=== PATIENT | female | born 1990 | race Caucasian/White ===

== ENCOUNTER 2024-09-25 01:42 | Emergency (ER) | payer SELFPAY ==
[~2024-09-25] VITALS: Ht 167.6 cm; Wt 60.0 kg
[2024-09-25 01:50] VITALS: BP 105/60; PULSE 88; RESP 18; TEMP 36.7; O2SAT 98
[2024-09-25] MEDS: OXYMETAZOLINE HCL NASAL SPRAY 15ML BOTHNSTRLS STA (03:38)
[2024-09-25 04:06] LABS: BASOPHILS % 0.3 % (0.0-2.0); EOSINOPHILS % 0.5 % (0.0-5.0); HEMATOCRIT. 26.2 % (36.0-48.0); HEMOGLOBIN. 8.5 g/dL (12.0-16.0); LYMPHOCYTES % 17.5 % (20.0-50.0); MEAN CORPUSCULAR HEMOGLOBIN 30.2 pg (28.0-32.0); MEAN CORPUSCULAR HGB CONC 32.4 g/dL (31.0-37.0); MEAN CORPUSCULAR VOLUME 93.1 fL (81.0-99.0); MEAN PLATELET VOLUME 7.3 fl (7.4-10.4); MONOCYTES % 14.4 % (2.0-8.0); NEUTROPHILS % 67.3 % (40.0-76.0); PLATELET 368 x1000/uL (130-400); RED BLOOD CELL COUNT 2.81 mill/uL (4.2-5.4); RED CELL DISTRIBUTION WIDTH 18.6 % (11.6-14.6); WHITE BLOOD COUNT 5.6 x1000/uL (4.5-11.0)
[2024-09-25 04:41] LABS: INR 0.9; PARTIAL THROMBOPLASTIN TIME 25.9 sec (23.4-31.0); PROTHROMBIN TIME 9.9 sec (9.6-11.0)
== END 2024-09-25 04:16 | disposition home or self-care (01) ==
LOC: ER 01:42
DX: O26.892 Other specified pregnancy related conditions, second trimester (principal); R04.0 Epistaxis; Z3A.18 18 weeks gestation of pregnancy; Z88.0 Allergy status to penicillin
CPT/HCPCS: 36415; 85025; 99283